=== PATIENT | female | born 1975 | race Caucasian/White ===

== ENCOUNTER 2016-06-08 15:57 | Emergency (ER) | payer MEDICARE, MEDICAID ==
[~2016-06-08] VITALS: Ht 167.6 cm; Wt 59.1 kg
[~2016-06-08 15:57] MED LIST: NOMED
--- NOTE | 2016-06-08 16:17 | ED.REPORT ---
HPI-Psychiatric Illness Date of Service June 08, 2016 ED Provider: Andrea Aranda Patient is a 41 year old female who was brought to the ED from nursing home per [facility] request for BRAVO . Upon examination, the patient reports that she was brought in because she was "reading a book and repeating words from the book out loud". When asked about her mental history, she states "they told me I have PTSD but to hallucinate is unheard of in my lineage". She continues to talk nonsensically and is unable to provide an accurate history. Nursing Notes Stated Complaint: BRAVO Chief Complaint: Psychiatric Complaint Nursing Notes Reviewed: Yes Allergies: Coded Allergies: trazodone (Verified Allergy, Severe, 02/27/12) Miscellaneous Medications No Historical Medication (No Historical Medication) Ea General Time Seen by MD: 16:16 Chief Complaint Bizarre behavior Hx Obtained From: Patient, Police Unable to Obtain Hx: Mental status Arrived By: Police Risk-Psychiatric Illness Suicide Risk Stratification Suicide Risk Factors - Adult: : Substance abuse RF Statements: Risk factors reviewed Past Medical History Past Medical History Substance abuse - meth PTSD Bipolar disorder Depression Anxiety Violent behavior in skilled nursing Past Surgical History None reported Smoking History Unknown if Ever Smoker Social History Drug Use: Meth Ambulatory Status Independent Review of Systems Unable to Obtain ROS Mental status Physical Exam Initial Vital Signs Vital Signs (First) Date Time Temp Pulse Resp B/P Pulse Ox O2 Delivery O2 Flow Rate FiO2 06/08/16 16:19 36.7 125 20 154/113 96 Room Air Initial VS: Reviewed Neck: Full range of motion Respiratory: Breath sounds normal, Clear to auscultation, No respiratory distress Cardiovascular: Regular rate & rhythm, Heart sounds normal, Intact distal pulses Abdomen / GI: Soft, Non-tender, No guarding, No rebound, No distention Extremities: No swelling, No tenderness Skin: Warm, Dry General/Constitutional: Awake, Alert, Well developed Neurologic: Speech NL Abnormal Mood/Affect: Positive: Pressured speech Disorganized, responding to internal stumuli, flight of ideas Head / Eyes: Atraumatic, Normocephalic, PERRL No scalp tenderness Interpretation & Diagnostics Lab Results Interpretation Result Diagram: 06/08/16 1610 06/08/16 1610 Test 06/08/16 16:10 06/08/16 18:26 White Blood Count 8.2th/mm3 (3.8-10.1) Red Blood Count 4.85mil/mm3 (3.90-5.20) Hemoglobin 15.1g/dL (12.0-15.6) Hematocrit 42.7% (35.0-46.0) Mean Corpuscular Volume 88.0fL (81-100) Mean Corpuscular Hemoglobin 31.1pg (27.0-35.0) Mean Corpuscular Hemoglobin Concent 35.4% (32.0-37.0) Red Cell Distribution Width 12.8% (12.3-15.4) Platelet Count 306bil/L (150-400) Neutrophils (%) (Auto) 42.8% (40-74) Lymphocytes (%) (Auto) 45.1% (14-46) Monocytes (%) (Auto) 9.3% (4-12) Eosinophils (%) (Auto) 2.3% (0-5) Basophils (%) (Auto) 0.4% (0-3) Sodium Level 137mEq/L (134-144) Potassium Level 3.8mEq/L (3.5-5.2) Chloride Level 99mEq/L (97-108) Carbon Dioxide Level 21mmol/L (18-29) Blood Urea Nitrogen 11mg/dL (6-24) Creatinine 0.72mg/dL (0.57-1.00) Estimat Glomerular Filtration Rate 127mL/min (>59) Glucose Level 108mg/dL (60-99) Calcium Level 9.2mg/dL (8.5-10.1) Total Bilirubin 0.4mg/dL (0.0-1.2) Aspartate Amino Transf (AST/SGOT) 15U/L (0-50) Alanine Aminotransferase (ALT/SGPT) 6U/L (0-32) Alkaline Phosphatase 82U/L (25-150) Total Protein 7.9g/dL (6.4-8.4) Albumin 4.6g/dL (3.4-5.0) Thyroid Stimulating Hormone (TSH) 1.440uIU/mL (0.450-4.500) Hold Ware Top Tube Received (Received) Alcohols < 10mg/dL (0-10) Urine Color Yellow (YELLOW) Urine Appearance Clear (CLEAR,HAZY) Urine pH 7.0 (5.0-8.0) Urine Specific Rupert 1.010 (1.003-1.035) Urine Protein Negativemg/dL (NEG,TRACE) Urine Glucose (UA) Negativemg/dL (NEGATIVE) Urine Ketones Negativemg/dL (NEGATIVE) Urine Occult Blood Small (NEGATIVE) Urine Nitrite Negative (NEGATIVE) Urine Bilirubin Negative (NEGATIVE) Urine Urobilinogen Normalmg/dL (NORMAL) Urine Leukocyte Esterase Negative (NEGATIVE) Urine RBC 0-2/hpf (0-2) Urine WBC 0-5/hpf (0-5) Urine Epithelial Cells None/hpf (NONE-MOD) Urine Crystals None seen (NONE SEEN) Urine Bacteria Few/hpf (NONE-FEW) Urine Hyaline Casts None/lpf (NONE) Urine Granular Casts None seen (NONE SEEN) Urine Waxy Casts None seen (NONE SEEN) Urine Red Blood Cell Casts None seen (NONE SEEN) Urine White Blood Cell Casts None seen (NONE SEEN) Urine Mucus None seen (None Seen) Urine Trichomonas None seen (NONE SEEN) Urine Yeast None (NONE SEEN) Urinalysis Comment None Urine Culture Reflexed Not indicated Hold Urine Received (Received) Re-Eval/Medical Decision Med Decision/Clinical Course Patient is a 41-year-old female with unknown past medical history who presents to the emergency department from nursing home for severely disorganized behavior. Upon arrival she is disorganized, pressured in her speech and no significant history can be obtained. She is initially borderline tachycardic but otherwise hemodynamically stable. Laboratory studies notable as below: negative CBC and CMP unremarkable TSH within normal limits Urine drug screen positive for benzodiazepines, marijuana, opiates, tricyclic antidepressants, oxycodone I see no evidence of head trauma and she has no lateralizing neurologic symptoms. I do not feel that head CT is indicated. She has had no meningismus and she is afebrile without leukocytosis. I do not feel that lumbar puncture is indicated. The patient is clearly psychotic and quite disorganized. Here she was given Haldol, Ativan and Benadryl with good effect. I was able to remove her from 4-point restraints thereafter. She has been detained by [facility] will be transferred to [facility]. At this time I see no evidence of organic etiology of the patient's presentation. I feel that she will best be served at a psychiatric facility. Re-Evaluation/Progress : Time of Eval: 22:44 Re-Evaluation/Progress Note: Patient became agitated when informed that she will not be going back to nursing home. Consultation : Consulted With: line worker Call Returned at: 16:31 Note: Discussed pt case with line worker ByronBo Rios will medically clear and detain pt. Counseled Regarding: Diagnosis, Need for transfer Discharge & Departure Shift Change Sign-Out Patient Care Transferred: Yes Discussed Complaint(s): Yes Laboratory Evaluation: Lab evaluation discussed Additonal Information: Patient care transfered to Dr. Terrell at 0000. Impression: Primary Impression: Psychosis Psychosis type: unspecified psychosis type Qualified Code: F29 - Unspecified psychosis not due to a substance or known physiological condition Additional Impressions: Polysubstance abuse Agitation Disposition: Transfer, Psychiatric Inpt Referrals: NOPCP (PCP) Care Transferred at: 00:00 Crit Care Except Billable Proc Time Spent: 105-134 minutes Services Performed: Patient management by me, Time spent at bedside, Reviewing test results, Reviewing imaging, Discussing patient care, Documentation in record Scribe Attestation Portions of this note were transcribed by Shelly Ortiz. I, Dr. Aranda personally performed the history, physical exam and medical decision-making; I reviewed and confirmed the accuracy of the information in the transcribed note. Signed by: Shelly Ortiz 06/08/16, 2245 Andrea Aranda MD June 08, 2016 16:17 SHELLY ORTIZ June 08, 2016 18:35 SHELLY ORTIZ June 08, 2016 18:35
[2016-06-08 16:19] VITALS: BP 154/113; PULSE 125; RESP 20; O2SAT 96
[2016-06-08] MEDS ORDERED: Haloperidol 5 mg/mL Inj IM PRN ×2 (16:20→22:45)
[2016-06-08 16:27] LABS: BASOPHILS % (AUTO) 0.4 % (0-3); EOSINOPHILS % (AUTO) 2.3 % (0-5); MONOCYTES % (AUTO) 9.3 % (4-12); Mean Corpuscular Hemoglobin 31.1 pg (27.0-35.0); NEUTROPHILS % (AUTO) 42.8 % (40-74); Platelet Count 306 bil/L (150-400)
[2016-06-08] MEDS ORDERED: 0.9% Sodium Chloride 1,000 ML IV SCH (16:30)
[2016-06-08] MEDS ORDERED: 0.9% Sodium Chloride 1,000 ML IV ONE (16:30)
[2016-06-08 17:24] VITALS: BP 129/85; PULSE 79; RESP 16; O2SAT 99
[2016-06-08 21:39] LABS: APPEARANCE,URINE CLEAR (CLEAR,HAZY); COLOR,URINE YELLOW (YELLOW); OCCULT BLOOD,URINE SMALL (NEGATIVE); UROBILINOGEN,URINE NORMAL (NORMAL)
[2016-06-08 23:41] VITALS: BP 103/60; PULSE 77; RESP 16; O2SAT 99
== END 2016-06-08 23:40 | disposition other institution (70) ==
LOC: SED 15:57
DX: F29 Unspecified psychosis not due to a substance or known physiological condition (principal); F19.10 Other psychoactive substance abuse, uncomplicated; F31.9 Bipolar disorder, unspecified; F43.10 Post-traumatic stress disorder, unspecified
CPT/HCPCS: 36415; 80053; 81000; 82075; 84443; 85025; 96372; 99291; 99292; G0480; J1200; J1630; J2060; J7030

== ENCOUNTER 2016-10-28 20:38 | Emergency (ER) | payer MEDICARE, MEDICAID ==
[~2016-10-28] VITALS: Ht 165.1 cm; Wt 62.0 kg
[2016-10-28 20:53] VITALS: BP 145/100; PULSE 100; RESP 18; O2SAT 98
[2016-10-28 22:08] LABS: BASOPHILS % (AUTO) 0.1 % (0-3); EOSINOPHILS % (AUTO) 0.1 % (0-5); MONOCYTES % (AUTO) 14.2 % (4-12); Mean Corpuscular Hemoglobin 29.4 pg (27.0-35.0); Mean Corpuscular Volume 81.6 fL (81-100); NEUTROPHILS % (AUTO) 80.9 % (40-74); Platelet Count 216 bil/L (150-400)
--- NOTE | 2016-10-28 22:19 | ED.REPORT ---
HPI-Abd Pain F 40 and Over Date of Service Oct 28, 2016 ED Provider: Juan Ramon Terrell MD The pt is a 41 y/o female w/ a hx of methamphetamine abuse, PTSD, bipolar disorder, depression, and anxiety presenting to the ED c/o abdominal pain onset 4 days ago. The pain is diffuse. She has also been experiencing dark urine for the last 7 days, vomiting, flank pain, a lack of appetite, and she reports her eyes appearing yellow. Denies dysuria. The pt reports there being no chance of her being and not having intercourse for the last 7 days. Nursing Notes Stated Complaint: ABDOMINAL PAIN Chief Complaint: Abdominal pain Nursing Notes Reviewed: Yes Allergies: Coded Allergies: asenapine (Verified Allergy, Severe, swelling of tongue, hives, 10/28/16) trazodone (Verified Allergy, Severe, 02/27/12) fluoxetine (Verified Allergy, Intermediate, shake, 10/28/16) Miscellaneous Medications No Historical Medication (No Historical Medication) Ea General Time Seen by MD: 22:18 Chief Complaint Abdominal pain Hx Obtained From: Patient Arrived By: Walk-in Sudden in Onset?: Yes Onset Occurred: 4 days ago Symptom Duration: Since onset Recent Healthcare: No recent hospitalization, Recent doctor visit Similar Sx Previous: Yes Past Medical History Past Medical History Substance abuse - meth PTSD Bipolar disorder Depression Anxiety Violent behavior in fpc Past Surgical History None reported Smoking History Unknown if Ever Smoker Social History Drug Use: Meth Ambulatory Status Independent Review of Systems Dark urine; Lack of appetite; Pt reports her eyes appearing yellow; GI: Reports: Abdominal pain, Vomiting Female: Reports: Flank pain, Denies: Dysuria Complete sys rev & neg: except as marked. Physical Exam Vital Signs Vital Signs (First) Date Time Temp Pulse Resp B/P Pulse Ox O2 Delivery O2 Flow Rate FiO2 10/28/16 20:53 36.7 100 18 145/100 98 Room Air Initial VS: Reviewed, Vital signs abnormal Head / Eyes: Atraumatic, Normocephalic, PERRL Neck: Supple, Non-tender, Full range of motion Extremities: Vascular intact, Neuro intact, No swelling, No tenderness Neurologic: Alert, Oriented, Nonfocal Psychiatric: Mood/affect normal, Behavior normal, Normal thought content General/Constitutional: Awake, Alert Pt is not icteric or jaundiced; Respiratory / Chest: Atraumatic, Breath sounds NL, Breath sounds = bilat Cardiovascular: Regular rhythm, Heart sounds NL Heart Rate / Rhythm: Positive: Tachycardia Abdomen: Atraumatic, Soft, Non-tender Back: Atraumatic, Full range of motion ENT: Airway patent Mouth: Positive: Mucous membranes dry Skin: No rash, Warm, Dry, Intact Skin is well tanned; Interpretation & Diagnostics US abdomen Conclusion: 1. Dilated CBD 19 mm. 2.2 x 1.9 cm hypoechoic lesion at the pancreatic head. Findings concerning for malignancy, CBD obstruction. Correlate w/ LFTs and consider cross-sectional imaging. 2. 2. Gallbladder sludge and stones. There is a pericholecystic fluid and sonographic Munger sign. I cannot exclude cholecystitis. There is also a comet tail artifact and the wall thickening could potentially be related to adenomyomatosis. 3. 3. Mild hepatomegaly. This report was transmitted to the emergency room at 10/29/16 0000:18 AM PDT. Lab Results Interpretation Result Diagram: 10/28/16204910/28/162049 Test 10/28/16 20:50 10/28/16 22:24 10/28/16 23:18 White Blood Count 18.1th/mm3 (3.8-10.1) Red Blood Count 5.06mil/mm3 (3.90-5.20) Hemoglobin 14.9g/dL (12.0-15.6) Hematocrit 41.3% (35.0-46.0) Mean Corpuscular Volume 81.6fL (81-100) Mean Corpuscular Hemoglobin 29.4pg (27.0-35.0) Mean Corpuscular Hemoglobin Concent 36.1% (32.0-37.0) Red Cell Distribution Width 13.2% (12.3-15.4) Platelet Count 216bil/L (150-400) Neutrophils (%) (Auto) 80.9% (40-74) Lymphocytes (%) (Auto) 4.4% (14-46) Monocytes (%) (Auto) 14.2% (4-12) Eosinophils (%) (Auto) 0.1% (0-5) Basophils (%) (Auto) 0.1% (0-3) Hold Purple Top Tube Received (Received) Hold Blue Top Tube Received (Received) Sodium Level 126mEq/L (134-144) Potassium Level 3.5mEq/L (3.5-5.2) Chloride Level 83mEq/L (97-108) Carbon Dioxide Level 23mmol/L (18-29) Blood Urea Nitrogen 8mg/dL (6-24) Creatinine < 0.30mg/dL (0.57-1.00) Estimat Glomerular Filtration Rate mL/min (>59) Glucose Level 139mg/dL (60-99) Calcium Level 9.4mg/dL (8.5-10.1) Magnesium Level 2.1mg/dL (1.6-2.6) Total Bilirubin 14.1mg/dL (0.0-1.2) Aspartate Amino Transf (AST/SGOT) 45U/L (0-50) Alanine Aminotransferase (ALT/SGPT) 197U/L (0-32) Alkaline Phosphatase 475U/L (25-150) Total Protein 7.7g/dL (6.4-8.4) Albumin 3.5g/dL (3.4-5.0) Lipase 11U/L (13-60) Hold Bruno Top Tube Received (Received) Alcohols < 10mg/dL (0-10) Hold Urine Received (Received) Lactic Acid Level 0.9mmol/L (0.4-2.0) Lab Results Interpretation: Elevated white blood count, hyponatremia, markedly elevated bilirubin Re-Eval/Medical Decision Med Decision/Clinical Course 41-year-old female with jaundice and right upper quadrant abdominal pain. She is found to have elevated white blood count and elevated bilirubin. Ultrasound shows that she has a gangrenous gallbladder with 19 mm common bile duct. She also has a non-distinct mass in the head of the pancreas. She was given Zosyn and fluid hydration. Her case was discussed with Dr. Chiang and Dr. Coulter. We have no ERCP capability at this time so she will be transferred to [facility] for further evaluation and treatment. Source of Hx: Old records Re-Evaluation/Progress #1: Time of Eval: 22:28 Re-Evaluation/Progress Note: Pt rechecked and discussed plan for ultrasound. Re-Evaluation/Progress #2: Time of Eval: 23:39 Re-Evaluation/Progress Note: Rechecked pt and informed need for transfer to [facility] for ERCP. Pt agrees to treatment. Consultation #1: Referral / Consult Name: Jacob Davenport MD Consulted With: Surgeon Call Returned at: 23:12 Psychiatric Clinical Nurse Specialist: Will see patient Note: Discussed pt's case. Dr. Davenport will see the pt. Consultation #2: Referral / Consult Name: Jacob Coulter MD Consulted With: Hospitalist Call Returned at: 23:31 Note: Discussed pt's case w/ Dr. Coulter, custom tailor who says the patient needs ERCP. Consultation #3: Referral / Consult Name: ABBEY DE LA PAZ MD Consulted With: Hospitalist Call Returned at: 00:13 Psychiatric Clinical Nurse Specialist: Will see patient, Agrees with eval, Agrees with plan Note: Spoke w/ Dr. De La Paz of [facility] about the pt. Dr. De La Paz will accept the transer. Counseled Regarding: Diagnosis, Lab results, Need for admission Discharge & Departure Primary Impression: Gangrenous cholecystitis Additional Impression: Pancreatic mass Disposition: Transfer, Acute Care Facility Discharge Condition All VS Reviewed: Yes Condition: Stable Referrals: Blanca Staley MD Scribe Attestation Portions of this note were transcribed by David Blount. I, Dr. Terrell personally performed the history, physical exam and medical decision-making; I reviewed and confirmed the accuracy of the information in the transcribed note. copies to: Blanca Staley MD, Howard L MD Oct 28, 2016 22:19 David Blount Oct 28, 2016 22:26
[2016-10-28] MEDS ORDERED: 0.9% Sodium Chloride 1,000 ML IV ONE ×2 (22:20→23:10)
[2016-10-28 22:23] LABS: Lipase 11 U/L (13-60); Magnesium 2.1 mg/dL (1.6-2.6)
[2016-10-28] MEDS ORDERED: Ondansetron 2 mg/mL 2 mL Inj IVPUSH PRN (22:25)
[2016-10-28] MEDS ORDERED: Piperacillin-Tazo 3.375 Gm Inj 3.375 GM in Dextrose 5% Minibag Plus 50 ML IV ONE (23:10)
[2016-10-28 23:30] VITALS: BP 154/95; PULSE 97; RESP 20; O2SAT 98
--- NOTE | 2016-10-29 09:07 | DRSVH ---
PROCEDURE: US ABDOMEN, LIMITED ([id number]) INDICATIONS: jaundiced TECHNIQUE: Real-time focused scanning was performed of the abdomen, with image documentation. COMPARISON: [facility], [place], ABDOMEN SONOGRAM, 03/04/2009, 11:32. FINDINGS: Limited sonographic images demonstrate the liver to be enlarged with an overall appearance of coarsened echogenicity. Bladder wall is thickened measuring 4.7 mm. Multiple areas of increased ec hogenicity are identified within the lumen. Heterogeneous foci are noted within the gallbladder wall raises suspicion for potential air. Pericholecystic fluid is present as well the sonographic Anderson's sign. The common bile duct is enlarged measuring 19 mm. There is a 22 x 12 x 19 mm mass like focus n ear the head of the pancreas. IMPRESSION: 1. Markedly large gallbladder wall with gallstones as above. There is suspicion for air within the ga llbladder wall as well as visualization of pericholecystic fluid sonographic Anderson sign. Findings ra ise concern for cholelithiasis and cholecystitis including gangrenous cholecystitis and adenomyomatos is. 2. Common bile duct is dilated. This could be secondary to gallbladder pathology. However, other sour ce of obstruction cannot be excluded. 3. Masslike appearance near the pancreatic head region. While this could represent a lymph node, othe r etiologies such as pancreatic mass cannot be excluded and further evaluation with CT is recommended . Dictated by: Vy Hernandez M.D. on 10/29/2016 at 9:02 Approved by: Vy Hernandez M.D. on 10/29/2016 at 9:05
== END 2016-10-29 01:13 | disposition short-term general hospital (02) ==
LOC: SED 20:38
DX: K81.0 Acute cholecystitis (principal); D37.8 Neoplasm of uncertain behavior of other specified digestive organs; K86.89 Other specified diseases of pancreas; F15.10 Other stimulant abuse, uncomplicated; F41.9 Anxiety disorder, unspecified; F43.10 Post-traumatic stress disorder, unspecified; Z88.8 Allergy status to other drugs, medicaments and biological substances
CPT/HCPCS: 36415; 76705; 80053; 81025; 83605; 83690; 83735; 85025; 96361; 96365; 96375; 99285; G0480; J2405; J2543; J7030